=== PATIENT | male | born 2005 | race Caucasian/White ===

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

== ENCOUNTER 2024-12-14 17:45 | Emergency (ER) | payer OTHER, SELFPAY ==
--- OUTSIDE RECORDS SUMMARY | 2024-12-14 17:48 | XMS_ITS | Clinical Summary ---
Author Organization [facility] Address [address] [place] [id number] Care Team Providers Care Tail Sawyer Name Role Phone Pcp, No Primary Care Provider Unavailabl e Allergies No known active allergies Medications fluticasone (50 mcg per actuation) nasal solution (FLONASE)Indica tions:Acute non-recurrent maxillary sinusitis Inhale 2 Sprays to both nostrils once daily. 16 g 01/16/2022 Active ciprofloxacin-d exAMETHasone (CIPRODEX) otic suspensionIndic ations:Left ear pain Place 4 Drops into left ear two times daily. 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, unspecified whether recurrent 01/16/2022 Suprapatellar effusion of knee 01/16/2022 Anxiety state, unspecified 12/16/2010 Overweight(278.02) 12/29/2008 Unspecified visual disturbance 05/24/2007 Overview (05/24/2007): monocular vision Unspecified otitis media Resolved Problems Problem Noted Date Diagnosed Date Resolved Date Unspecified visual disturbance 05/24/2007 05/24/2007 Overview (05/24/2007): monocular vision Unspecified visual disturbance 05/24/2007 05/24/2007 Overview (05/24/2007): monocular vision Immunizations Immunization Administration Dates Next Due COVID-19 vaccine ([employer] 30mcg/0.3mL) PF, MDV 07/28/2020,07/07/2020 DTaP 02/02/2008,04/22/2004 [id number]-[id number]-JCC (Pediarix) 2003,2003,1 HIB PRP-OMP (PedvaxHIB) 04/22/2004,2003, HPV 9 (Gardasil 9) 01/16/2022,11/29/2020, 021 Hepatitis A (Peds) 12/29/2008,02/02/2008 Inactivated Polio Vaccine 12/29/2008 Influenza A (H1N1), Inactivated 04/04/2009 Influenza A (H1N1), Inactiva manisha (Age >=3 Years) 05/03/2009 Influenza Virus, Unspecified 02/07/2012 Influenza, IIV3 (Age 6-35 mos) 02/09/2009,2006,04/03/2006 Influenza, IIV3 (Age >=3 years) 04/10/2010,04/05 MENINGOCOCCAL VACCINE 2 VIAL 2MO-55YO (MENVEO) 09/21/2020,10/15/2015 MMR 12/29/2008,01/22/2004 Pneumococcal conj 7-Valent (Prevnar 7) 1 2003,2003,2003,03/02 Tdap 10/15/2015 Varicella Vaccine 12/29/2008,01/22/2004 Family History Medical History Relation Name Comments Good Health Father Good Health Mother Anesthesia Problem No Family History Asthma No Family History Cancer-breast No Family History Cancer-colon No Family History Diabetes No Family History Heart Disease No Family History Hyperlipidemia No Family History Other No Family History bleeding p roblems Relation Name Status Comments Father Mother Social History Tobacco Use Types Packs/Day Years Used Date Smoking Tobacco: Never Smokeless Tobacco: Never Tobacco Cessation:Counseling Given: Yes Alcohol Use Standard Drinks/Week Comments Not Currently 0 (1 standard drink = 0.6 oz pur e alcohol) PHQ-2 Answer Date Recorded PHQ-2 TOTAL SCORE 0 01/16/2022 Social Connections Answer Date Recorded Frequency of Communication with Friends and Fami ly Not on file 2023 Financial Resource Strain Answer Date R ecorded Difficulty of Paying Living Expenses 3 01/15/2022 Difficulty of Paying Living Expenses Not on file 01/15/2022 Food Insecurity Answer Date Recorded Worried About Running Out of Food in the Last Ye ar 1 01/15/2022 Transportation Needs Answer Date Record ed Lack of Transportation (Medical) 1 01/15/2022 Housing Stability Answer Date Recorded Unable to Pay for Housing in the Last Year 1 01/15/2022 Sex and Gender Information Value Date Recorded Sex Assigned at Not on file Legal Sex Male 5:21 AM [employer] Gender Identity Not on file Sexual Orientation Not on file Obstetrics History Last Filed Vital Signs Vital Sign Reading Time Taken Comments Blood Pressure 136/69 07/30/2024 11:53 AM [employer] Pulse 94 07/30/2024 11:53 AM [employer] Temperature 36.9 C (98.4 F) 07/30/2024 11:53 AM [employer] Respiratory Rate 18 07/30/2024 11:5 3 AM [employer] Oxygen Saturation 96% 07/30/2024 11: 53 AM [employer] Inhaled Oxygen Concentration - - Weight 130.3 kg (287 lb 3.2 oz) 025 11:53 AM LAP [employer] Height 177 cm (5' 9.69) 01/16/2022 9:21 AM CDT Body Mass Index - - Plan of Treatment Health Maintenance Due Date Last Done Comments Hepatitis C screening for age 18-79 2021 BMI (ht and wt on same day) for age 18+ 01/16/2023 01/16/2022, 08/27/2021 Depression screening for age 12+ 01/16/2023 01/16/2022, 01/30/2021, 01/29/2021, Additional history exists COVID-19 vaccine series ( season) 2024 04/28/2021, 07/28/2020, 07/07/2020 Influenza Vaccine (#1) 2025 2, 04/10/2010, 02/09/2009, Additional history exists Tetanus booster 10/14/2025 10/15/2015 Hepatitis B series for 19+ Completed 07/23, 2003, 2003 Pneumococcal series for age 6-49 Aged Out 04/22/2004, 2003, 2003, Additional history exists No longer eligible based on patient's age to complete this topic HIV for age 15-65 Completed 09/21/2020 Meningococcal series for age 11-21 Completed 09/21/2020, 10/15/2015 HPV series for age 9-26 Completed 01/17/20, 11/29/2020, 09/21/2020 Procedures Procedure Name Priority Date/Time Associated Diagnosis Comments ANTI HIV 1/2 Routine 09/21/2020 9:55 AM CDT Screening examination for STD (sexually transmitted disease) Screening for HIV (human immunodeficiency virus) from Last 3 Months or Most Recently Relevant to Health Maintenance Results * ANTI HIV 1/2 [37446.0] (09/21/2020 9:55 AM CDT) HIV-1/HIV-2 ANTIBODY Non-Reacti ve Non-Reacti ve 09/21/2020 6:20 PM CDT [facility] Comment:HIV-1 p24 and HIV-1/ HIV-2 Ab not detected. Blood BLOOD SPECIMEN / Unknown Venipuncture / Unknown 09/21/2020 9:55 AM CDT 09/21/2020 9:55 AM CDT us Adei Shaqra DO SEND OUTS Final Result [facility] [address] [place] [address], [place] from Last 3 Months or Most Recently Relevant to Health Maintenance Insurance [employer] [id number] Care Teams Tail Sawyer Relationship Specialty Start Date End Date Pcp, No . PCP - General 09/19/20
[2024-12-14 18:00] VITALS: BP 126/76; PULSE 77; RESP 18; TEMP 36.5; O2SAT 98; BMI 38.7
--- NOTE | 2024-12-14 18:03 | CRLHL7_ITS ---
For Patients: As a result of the Century Cures Act, medical imaging exams and procedure reports are released immediately into your electronic medical record. You may view this report before your referring provider. If you have questions, please contact your health care provider. Indication: hit top of R foot with sledgehammer. Technique: Right foot 3 views. Comparison: None. Findings: Bones: Alignment is normal. No fractures or bone lesions. Joint spaces: Unremarkable. Soft tissues: Focal soft tissue swelling along the dorsal aspect of the midfoot. Impression: No evident acute fracture or dislocation. Dictated by Tyler Miranda MD @ 12/14/2024 6:50:45 PM (Electronically Signed)
[2024-12-14] MEDS: IBUPROFEN 200 MG TABLET 600 MG PO (18:09)
--- NOTE | 2024-12-14 19:03 | ED.LOWEXIN ---
HPI - Extremity Injury (Lower) General Date Seen: 12/14/24 Chief Complaint: Extremity Pain/Injury, Lower Stated Complaint: hit top of R foot with sledgehammer Time Seen by Provider: 12/14/24 18:05 Source: patient Mode of arrival: ambulatory Limitations: no limitations History of Present Illness HPI Narrative: Patient is a 19-year-old male presenting to emergency department for right foot pain. 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 Was able to ambulate into the department. Denies any other injuries. Denies any numbness to his foot. Is able wiggle his toes. No other concerns noted. Related Data Home Medications ?Medication ?Instructions ?Recorded ?Confirmed No Known Home Medications 12/04/21 01/13/22 Allergies Allergy/AdvReac Type Severity Reaction Status Date / Time No Known Drug Allergies Allergy Verified 01/13/22 10:02 Review of Systems Narrative: Pertinent systems reviewed and were negative unless stated in HPI PFSH COUNTS INCLUDE 234 BEDS AT THE [facility] Medical History Encounter for screening for severe acute respiratory syndrome coronavirus 2 (SARS-CoV-2) infection ?Z11.52 - Encounter for screening for COVID-19 (ICD-10) Social History Smoking Status: Never smoker Do you use any of these nicotine containing products: None How often do you have a drink containing alcohol: never AUDIT-C Alcohol total score: 0 Non-prescribed substance use: marijuana (any form) service: No Exam Narrative: Exam Narrative: Const: Well-nourished, Well-developed, in mild distress Eyes: PERRL, no conjunctival injection, and symmetrical lids HENT: Atraumatic external nose and ears. Moist mucous membranes. CVS: Cap refills of toes less than 2 seconds MSK: Extremities w/o deformity, Normal Active ROM, obvious swelling noted to the dorsal aspect of the foot on his right. Skin: Warm, Dry. No rashes or lesions. Neuro: Normal Muscle tone, No focal neurological deficits. Psych: Awake, Alert, & Oriented x3. Appropriate mood and affect. Const: Vital Signs, click to edit/add: Vital Signs - 24 hr 12/14/24 18:00 Temperature 97.7 F Pulse Rate [Pulse Oximeter] 77 Respiratory Rate 18 Blood Pressure [Ri ght Upper Arm] 126/76 Pulse Oximetry 98 Oxygen Delivery Me thod Room Air Course Vital Signs Vital signs: Initial Vital Signs Temperature 97.7 F 12/14/24 18:00 Temperature Source Temporal Artery Scan 12/14/24 18:00 Pulse Rate 77 12/14/24 18:00 Pulse Rhythm Regular 12/14/24 18:00 Respiratory Rate 18 12/14/24 18:00 Blood Pressure 126/76 12/14/24 18:00 Blood Pressure Mean 92 12/14/24 18:00 Blood Pressure Position Sitting 12/14/24 18:00 Pulse Oximetry 98 12/14/24 18:00 Oxygen Delivery Method Room Air 12/14/24 18:00 Vital Signs Temperature 97.7 F 12/14/24 18:00 Pulse Rate 77 12/14/24 18:00 Respiratory Rate 18 12/14/24 18:00 Blood Pressure 126/76 12/14/24 18:00 Pulse Oximetry 98 12/14/24 18:00 Oxygen Delivery Method Room Air 12/14/24 18:00 Temperature 97.7 F 12/14/24 18:00 Pulse Rate 77 12/14/24 18:00 Respiratory Rate 18 12/14/24 18:00 Blood Pressure 126/76 12/14/24 18:00 Pulse Oximetry 98 12/14/24 18:00 Oxygen Delivery Method Room Air 12/14/24 18:00 Medications Administered Medications: Discontinued Medications Generic Name Dose Route Start Last Admin Trade Name Freq PRN Reason Stop Dose Admin Ibuprofen 600 mg 12/14/24 18:05 12/14/24 18:09 Ibuprofen 200 Mg Tablet PO 12/14/24 18:06 600 mg ONCE ONE Administration MDM - Extremity Injury (Lower) MDM Narrative Medical decision making narrative: Patient is a 19-year-old male presenting to the emergency department after a hitting the top of his foot with a sledgehammer. X-ray of this will be ordered. No other injuries noted. Ibuprofen given for pain is. Patient does not want any further pain medication. X-ray returned showing no acute concerning abnormalities. Patient is doing well at this time. He is neurovascular intact. No open wounds seen. He will be discharged. Imaging Data X-ray right foot: Attestation: I have reviewed the pertinent imaging results. Radiologist's impression: No evident acute fracture or dislocation. Dictated by Tyler Miranda MD @ 12/14/2024 6:50:45 PM Discharge Plan Discharge Clinical Impression: Contusion of foot Qualifiers: Encounter type: initial encounter Laterality: right Qualified Code(s): S90.31XA - Contusion of right foot, initial encounter Patient Disposition: Home, Self-Care Condition: Stable Instructions: Foot Contusion (ED) Additional Instructions: Take Tylenol and ibuprofen for pain. If pain persist into next week I do recommend following up with your primary care provider as sometimes small fractures do not show up on imaging until a week later. Return to emergency department for new or worsening symptoms. Prescriptions: No Action No Known Home Medications Follow Up/Referrals: Sharon Plasencia MD [Primary Care Provider, Pediatrics] Stand Alone Forms: [facility] [employer] Info Instructions
[2024-12-14 19:43] VITALS: PULSE 64; RESP 21; O2SAT 95
== END 2024-12-14 19:55 | disposition home or self-care (01) ==
LOC: ED 19:21
PROVIDERS: Emergency Provider Student in an Organized Health Care Education/Training Program; PCP Pediatrics
DX: S90.31XA Contusion of right foot, initial encounter (principal); W22.8XXA Striking against or struck by other objects, initial encounter
CPT/HCPCS: 73630; 99283; A9270